=== PATIENT | male | born 2005 | race Caucasian/White ===

== ENCOUNTER 2024-02-24 23:38 | Emergency (ER) | payer OTHER ==
[~2024-02-24] VITALS: Ht 165.1 cm; Wt 68.0 kg
[2024-02-25] MEDS ORDERED: IBUP-1492 PO (01:36)
[2024-02-25 02:23] VITALS: BP 125/71; PULSE 75; RESP 20; TEMP 98.3
[2024-02-25] MEDS: IBUPROFEN 600 MG TABLET PO ONE (02:27)
== END 2024-02-25 02:42 | disposition home or self-care (01) ==
LOC: EMS 23:40
DX: S29.011A Strain of muscle and tendon of front wall of thorax, initial encounter (principal); X58.XXXA Exposure to other specified factors, initial encounter; Y93.89 Activity, other specified; Y92.89 Other specified places as the place of occurrence of the external cause; Y99.8 Other external cause status
CPT/HCPCS: 93005; 99283